=== PATIENT | female | born 1965 | race African-American/Black ===

== ENCOUNTER 2020-06-02 12:47 | Emergency (ER) | payer SELFPAY ==
[2020-06-02] MEDS ORDERED: Sodium Chloride 0.9% 1,000 ML ONE (13:10)
[2020-06-02] MEDS ORDERED: methylPREDNISolone Sod Succ/PF 125 MG/2 ML VIAL ONE (13:10)
[2020-06-02] MEDS ORDERED: diphenhydrAMINE 50 MG/ML VIAL ONE (13:10)
== END 2020-06-02 14:48 | disposition home or self-care (01) ==
LOC: NAV ERS 12:47
DX: R21 Rash and other nonspecific skin eruption (principal); T50.B95A Adverse effect of other viral vaccines, initial encounter; L50.0 Allergic urticaria; R00.0 Tachycardia, unspecified; E66.9 Obesity, unspecified
CPT/HCPCS: 96374; 96375; J1200; J2930; J7050